=== PATIENT | male | born 1980 | race Caucasian/White ===

== ENCOUNTER 2019-12-20 17:53 | Emergency (ER) | payer OTHER ==
[~2019-12-20] VITALS: Ht 165.1 cm; Wt 124.0 kg
--- NOTE | 2019-12-20 18:53 | PHYS DOC ---
Past Medical History Past Medical History: No Pertinent History Smoking Status: Never Smoker Alcohol Use: Rarely General Adult EDM: Chief Complaint: FLANK PAIN HPI: HPI: 39-year-old female presents with left-sided abdominal pain that has been there for the last 2 to 3 months. Patient's pain is worse with eating. Patient has nausea vomiting with eating. Patient has had some loose stools. Patient denies any fever, cough, shortness of breath. Patient saw his GI doctor who did an MRI of the belly 2 days ago. Patient does not have the results. Review of Systems: Review of Systems: Constitutional: Denies fever or chills. [] Eyes: Denies change in visual acuity. [] HENT: Denies nasal congestion or sore throat. [] Respiratory: Denies cough or shortness of breath. [] Cardiovascular: Denies chest pain or edema. [] GI: + abdominal pain, nausea, vomiting, : Denies dysuria. [] Musculoskeletal: mild back pain Integument: Denies rash. [] Neurologic: Denies headache, focal weakness or sensory changes. [] Endocrine: Denies polyuria or polydipsia. [] Lymphatic: Denies swollen glands. [] Psychiatric: Denies depression or anxiety. [] Heart Score: Risk Factors: Risk Factors: DM, Current or recent (<one month) smoker, HTN, HLP, family history of CAD, obesity. Risk Scores: Score 0 - 3: 2.5% MACE over next 6 weeks - Discharge Home Score 4 - 6: 20.3% MACE over next 6 weeks - Admit for Clinical Observation Score 7 - 10: 72.7% MACE over next 6 weeks - Early Invasive Strategies Physical Exam: PE: Constitutional: Well developed, well nourished, no acute distress, non-toxic appearance. HENT: No trismus Eyes: Conjunctiva clear, EOMI Neck: Normal range of motion, no tenderness, supple, no stridor. [] Cardiovascular: Regular rate/rhythm, peripheral pulse intact, [employer] intact Lungs & Thorax: No respiratory distress Abdomen: Abdomen soft with some mild left lower quadrant tenderness no guarding or rebound no pulsatile masses Skin: Diffuse: Intact, no rash Back: Full ROM Extremities: Normal inspection, no edema Neurologic: Alert and oriented X 3, normal motor function, , no focal deficits noted. Psychologic: Affect normal, judgement normal, mood normal. Current Patient Data: Labs: Laboratory Tests Test 12/20/19 18:40 12/20/19 19:21 Urine Collection Type Void Urine Color Kanika Urine Clarity Clear Urine pH 6.0 Urine Specific [place] 1.025 Urine Protein 30 mg/dL Urine Glucose (UA) Negative mg/dL Urine Ketones (Stick) Trace mg/dL Urine Blood Negative Urine Nitrite Negative Urine Bilirubin Small Urine Urobilinogen Dipstick 1.0 mg/dL Urine Leukocyte Esterase Trace Urine RBC 1-2 /HPF Urine WBC 5-10 /HPF Urine Squamous Epithelial Cells Few /LPF Urine Bacteria Few /HPF Urine Hyaline Casts Occasional /HPF Urine Mucus Marked /LPF White Blood Count 4.0 x10^3/uL Red Blood Count 4.66 x10^6/uL Hemoglobin 15.5 g/dL Hematocrit 44.7 % Mean Corpuscular Volume 96 fL Mean Corpuscular Hemoglobin 33 pg Mean Corpuscular Hemoglobin Concent 35 g/dL Red Cell Distribution Width 13.2 % Platelet Count 223 x10^3/uL Neutrophils (%) (Auto) 59 % Lymphocytes (%) (Auto) 24 % Monocytes (%) (Auto) 16 % Eosinophils (%) (Auto) 1 % Basophils (%) (Auto) 1 % Neutrophils # (Auto) 2.4 x10^3/uL Lymphocytes # (Auto) 1.0 x10^3/uL Monocytes # (Auto) 0.6 x10^3/uL Eosinophils # (Auto) 0.0 x10^3/uL Basophils # (Auto) 0.0 x10^3/uL Sodium Level 137 mmol/L Potassium Level 3.4 mmol/L Chloride Level 100 mmol/L Carbon Dioxide Level 31 mmol/L Anion Gap 6 Blood Urea Nitrogen 5 mg/dL Creatinine 1.3 mg/dL Estimated GFR (Cockcroft-Gault) 61.8 BUN/Creatinine Ratio 4 Glucose Level 94 mg/dL Calcium Level 8.8 mg/dL Total Bilirubin 0.9 mg/dL Aspartate Amino Transf (AST/SGOT) 45 U/L Alanine Aminotransferase (ALT/SGPT) 54 U/L Alkaline Phosphatase 101 U/L Total Protein 7.7 g/dL Albumin 4.1 g/dL Albumin/Globulin Ratio 1.1 Lipase 60 U/L Current Medications Medications (Trade) Dose Ordered Sig/Shahid Route PRN Reason Start Time Stop Time Status Last Admin Dose Admin Sodium Chloride 1,000 ml @ 100 mls/hr Q10H IV 12/20/19 19:06 12/20/19 22:43 DC 12/20/19 19:29 Ondansetron HCl (Zofran) 4 mg 1X ONCE IVP 12/20/19 19:45 12/20/19 19:46 DC 12/20/19 19:29 Ketorolac Tromethamine (Toradol 15mg Vial) 15 mg 1X ONCE IVP 12/20/19 19:45 12/20/19 19:46 DC 12/20/19 19:29 EKG: EKG: [] Radiology/Procedures: Radiology/Procedures: [] Course & Med Decision Making: Course & Med Decision Making Pertinent Labs and Imaging studies reviewed. (See chart for details) [] On reassessment patient is in no distress. Work-up is negative. Patient to follow-up with GI for further evaluation. Dragon Disclaimer: Dragon Disclaimer: This electronic medical record was generated, in whole or in part, using a voice recognition dictation system. Departure Departure Impression: Primary Impression: Left sided abdominal pain Disposition: HOME, SELF-CARE Condition: STABLE Referrals: YOUR GI DOCTOR Patient Instructions: Abdominal Pain Additional Instructions: EMERGENCY DEPARTMENT GENERAL DISCHARGE INSTRUCTIONS THANK YOU for coming to [facility] Emergency Department (ED) today and trusting us with your care. We trust that you had a positive experience in our Emergency Department. If you wish to speak to the department Management you can contact the department administrator at . YOUR FOLLOW UP INSTRUCTIONS ARE FOLLOWS: Do you have a private doctor? If you do not have a private doctor, please ask for a resource list of physicians or clinics that may be able to assist you with follow up care. The Emergency Physician has interpreted your x-rays. The X-ray specialist will also review them. If there is a change in the findings you will be notified in 48 hours when at all possible. A lab test or lab culture may have been done, your results will be reviewed and you will be notified if you need a change in treatment. ADDITIONAL INSTRUCTIONS AND INFORMATION Your care today has been supervised by a physician who is specially trained in emergency care. Many problems require more than one evaluation for a complete diagnosis and treatment. We recommend that you schedule your follow up appointment as recommended to ensure complete treatment of your illness or injury. If you are unable to obtain follow up care and continue to have a problem, or if your condition worsens we recommend that you return to the ED. We are not able to safely determine your condition over the phone nor are we able to give sound medical advice over the phone. For these safety reasons, if you call for medical advice we will ask you to come to the ED for further evaluation If you have any questions regarding these discharge instructions please call the ED at . SAFETY INFORMATION In the interest of safety, wellness, and injury prevention; we encourage you to wear your seatbelt, if you smoke; quit smoking, and we encourage your family to use protective helmet for bicycling and other sporting events that present an increased risk for head injury. IF YOUR SYMPTOMS WORSEN OR NEW SYMPTOMS DEVELOP, OR YOU HAVE CONCERNS ABOUT YOUR CONDITION; OR IF YOUR CONDITION WORSENS WHILE YOU ARE WAITING FOR YOUR FOLLOW UP APPOINTMENT; EITHER CONTACT YOUR PRIMARY CARE DOCTOR, THE PHYSICIAN WHOSE NAME AND NUMBER YOU WERE GIVEN, OR RETURN TO THE ED IMMEDIATELY. Scripts Promethazine Hcl (PROMETHAZINE HCL) 25 Mg Tablet 1 TAB PO PRN Q6HRS PRN for NAUSEA, #20 TAB Prov: CORTEZ MAYORGA MD 12/20/19 Hyoscyamine Sulfate (LEVSIN) 0.125 Mg Tablet 0.125 MG PO Q6HRS PRN for PAIN for 7 Days, #28 TAB Prov: CORTEZ MAYORGA MD 12/20/19 Promethazine Hcl (PROMETHAZINE HCL) 25 Mg Tablet 1 TAB PO PRN Q6HRS PRN for NAUSEA, #20 TAB Prov: CORTEZ MAYORGA MD 12/20/19 Justicifation of Admission Dx: Justifications for Admission: Justification of Admission Dx: N/A CORTEZ MAYORGA MD Dec 20, 2019 18:53
[2019-12-20] MEDS ORDERED: IV NORMAL SALINE 1000ML BAG 1,000 ML IV SCH (19:06)
[2019-12-20 19:21] LABS: BILIRUBIN,URINE SMALL (NEG); CLARITY,URINE CLEAR; COLOR,URINE AMBER; NITRITE,URINE NEGATIVE (NEG); PROTEIN,URINE 30 mg/dL (NEG-TRACE)
[2019-12-20 19:29] LABS: BACTERIA,URINE FEW /HPF (0-FEW); SQUAMOUS EPITHELIAL CELL,UR FEW /LPF
[2019-12-20 19:30] LABS: HYALINE CASTS, URINE OCCASIONAL /HPF
[2019-12-20 19:32] LABS: BASO % 1 % (0-3); EOS % 1 % (0-3); HEMATOCRIT 44.7 % (39.0-53.0); HEMOGLOBIN 15.5 g/dL (13.0-17.5); LYMPH % 24 % (24-48); MEAN CORPUSCULAR HEMOGLOBIN 33 pg (25-35); MEAN CORPUSCULAR HGB CONC 35 g/dL (31-37); MEAN CORPUSCULAR VOLUME 96 fL (79-100); MONO # 0.6 x10^3/uL (0.0-1.1); MONO % 16 % (0-9); NEUT # 2.4 x10^3/uL (1.8-7.7); NEUT % 59 % (31-73); PLATELET COUNT 223 x10^3/uL (140-400); RED BLOOD COUNT 4.66 x10^6/uL (4.30-5.70); RED CELL DISTRIBUTION WIDTH 13.2 % (11.5-14.5)
[2019-12-20 19:38] LABS: CALCIUM 8.8 mg/dL (8.5-10.1); CREATININE 1.3 mg/dL (0.7-1.3); GFR 61.8; POTASSIUM 3.4 mmol/L (3.5-5.1)
[2019-12-20 19:44] LABS: ALBUMIN 4.1 g/dL (3.4-5.0); ALBUMIN/GLOBULIN RATIO 1.1 (1.0-1.7); TOTAL BILIRUBIN 0.9 mg/dL (0.2-1.0); TOTAL PROTEIN 7.7 g/dL (6.4-8.2)
[2019-12-20] MEDS ORDERED: ONDANSETRON PF 4 MG/2 ML VIAL. IVP ONE (19:45)
[2019-12-20] MEDS ORDERED: KETOROLAC 15 MG/ML VIAL. IVP ONE (19:45)
[2019-12-20] MEDS ORDERED: PROM25TA10 PO ×2 (22:10→22:17)
[2019-12-20] MEDS ORDERED: HYOS0.1264 PO (22:10)
[2019-12-20 22:34] VITALS: BP 123/75
== END 2019-12-20 22:42 | disposition home or self-care (01) ==
LOC: ER 17:53
DX: R10.32 Left lower quadrant pain (principal); R11.2 Nausea with vomiting, unspecified; R19.7 Diarrhea, unspecified
CPT/HCPCS: 36415; 80053; 81001; 83690; 85025; 87086; 96361; 96374; 96375; 99285; J1885; J2405; J7030

== ENCOUNTER → 2020-01-08 | Outpatient (CLI) | payer OTHER ==
[2019-12-20 22:34] VITALS: BP 123/75
[~2020-01-08] MED LIST: DEXL60CA2 PO; DOCU-153 PO; HYDR-2761 PO; HYOS0.1264 PO; PROM25TA10 PO
--- NOTE | 2020-01-08 09:54 | PDOC2 ---
INITIAL PAIN CONSULT DATE OF SERVICE: DOS: DATE: 01/08/20 TIME: 09:58 CHIEF COMPLAINT: Chief Complaint: Abdominal pain HISTORY OF PRESENT ILLNESS: This is a 39-year-old male presents history of pain in the abdomen diffusely mostly in the left upper quadrant for the past 5 months. Patient reports no specific injury or accident or incident that he is aware of that might of started the pain is became diffusely gradually in the left upper quadrant worse with eating worse with defecating with motion all activities essentially. Patient reports he had extensive gastrointestinal work-up with his GI doctor including multiple scopes multiple scans all without significant findings or diagnostic findings. Patient describes the pain is constant sharp stabbing shooting in the left upper quadrant comes and goes worse after eating worse before eating patient reports it wakes him sleep once or twice a night occasionally but not most nights does not affect his bowel bladder control does affect his ability to change positions ambulate and walk as well as drive patient has tried Cymbalta hydrocodone as well as amitriptyline none of which have helped significantly decreased pain. Patient is awaiting evaluation with general surgery which is later today as well. Patient rates his disability of 0-10 10 me the worst is a 10 with recreation social activity occupation sexual behavior to his self-care 0 with life support activities with family home responsibilities. PAST MEDICAL HISTORY: PMH: Dizziness nausea vomiting abdominal pain obesity PREVIOUS SURGERIES: Past Surgical Hx: Tonsillectomy 1982 and ear tubes 1986 CURRENT MEDICATIONS: Current Meds: Active Scripts Medications Dose Route/Sig Max Daily Dose Days Date Category Hydrocodone-Apap 5-325 (Hydrocodone Bit/Acetaminophen) 1 Tab Tablet 1 Tab PO PRN Q6HRS PRN 01/08/20 Reported Promethazine Hcl 25 Mg Tablet 1 Tab PO PRN Q6HRS PRN 12/20/19 Rx ALLERGIES; Allergies: Coded Allergies: No Known Drug Allergies (Unverified , 12/20/19) FAMILY HISTORY: Family Hx: Grandfather with colorectal cancer and myocardial infarction in patient's father. SOCIAL HISTORY: Social Hx: Patient does not smoke quit drinking alcohol many years ago no other illegal illicit or recreational drugs drinks 1-2 caffeine drinks per day lives in [facility]. REVIEW OF SYSTEMS: ROS: Review of systems is positive for those items mentioned in his present illness all system reviewed otherwise negative complete full and well-documented on patient's chart. PHYSICAL EXAM: VS: Blood pressure 137/36 pulse 67 respirations 18 temperature 98.4 F height is 5 feet 5 inches weight is 2 8 1 pounds PE: PHYSICAL EXAMINATION: GENERAL: The patient is awake, alert, oriented, appropriate, very pleasant demeanor HEENT: Shows normocephalic, atraumatic. Extraocular movements are intact and symmetrical. Oral cavity: Mucous membranes moist and pink. Dentition is intact. NECK: Shows anterior throat supple without palpable lymphadenopathy noted. Swallow reflex symmetrical. CHEST: Shows normal on inspection. Breath sounds are clear bilaterally. HEART: Shows S1, S2 clear. No murmurs auscultated. ABDOMEN: Soft, diffusely tender worse in the left upper quadrant, but tender right upper quadrant bilateral lower quadrants diffusely as well. Nondistended. No palpable organomegaly is noted. No rebound or guarding demonstrated. BACK: Shows spine grossly in the midline. Normal-appearing cervical lordotic curvature. There is slightly increased thoracic kyphosis, some minor flattening of the lumbar lordotic curvature. Lumbar paraspinous muscles show symmetrical on inspection, on palpation shows some moderate tenderness diffusely throughout the upper, middle and lower distribution of the paraspinous muscles bilaterally but without specific trigger points, without radiation of pain. The patient has good rotational motion of the lumbar spine, both laterally as well as extension and flexion without significant difficulty. No tenderness over the spinous processes, sacrum or sacroiliac regions. EXTREMITIES: Lower extremities show deep tendon reflexes 1+ in the patellar and tendo calcaneus tendons. Motor exam is 5 on a scale of 5 with right dorsiflexion, extension, quadriceps and hamstring flexion and 5/5 on the left. Peripheral pulses are 1+ posterior tibial. No peripheral edema is noted bilaterally. Lower extremities are warm and dry to touch, equal in color and appearance. Straight leg raise noted to be negative bilaterally. Gaenslen's and Ernesto's maneuvers are negative as well. The patient is able to stand from a seated position does report some abdominal pain with this maneuver but walks without significant disturbance in gait. SKIN: Shows warm and dry, good turgor. No edema. No sores, rashes or bruising throughout. IMPRESSION: Impression: This is a 39-year-old male with 5-month history abdominal pain diffusely after extensive gastroenterology work-up and diagnostic studies including upper and lower scopes as well as CT scans. Patient has appointment with general surgery later this morning encouraged him to keep that appointment. Esperanza with the patient we would not be prescribed any long-term narcotics from this office. Patient may follow-up after surgical evaluation, if necessary. BLADIMIR MONTALVO MD Jan 08, 2020 09:54
== END | disposition home or self-care (01) ==
LOC: PNCL 08:53
PROVIDERS: ATTEND Anesthesiology
DX: R10.9 Unspecified abdominal pain (principal); Z80.0 Family history of malignant neoplasm of digestive organs; Z79.899 Other long term (current) drug therapy
CPT/HCPCS: G0463

== ENCOUNTER → 2020-01-31 | Outpatient (CLI) | payer OTHER ==
[~2020-01-31] MED LIST changes: -DEXL60CA2 PO; -DOCU-153 PO
== END ==
LOC: LAB 13:13
PROVIDERS: ATTEND Surgery
DX: Z20.828 Contact with and (suspected) exposure to other viral communicable diseases (principal)
CPT/HCPCS: U0003-CS

== ENCOUNTER 2020-02-04 08:23 | Observation (INO) | payer OTHER ==
[~2020-02-04] VITALS: Ht 165.1 cm; Wt 126.0 kg
[2020-02-04] VITALS (9 sets, daily range): BP systolic 117–141; BP diastolic 66–95
[~2020-02-04 08:23] MED LIST changes: +DEXL60CA2 PO; +HEPARIN 1,000 UNIT in IV NORMAL SALINE 1,000 ML for SURG PERIOP IRR ONE; +HYDROmorphone 2 MG/ML VIAL IV PRN; +IV RINGERS,LACTATED 1000ML 1,000 ML IV SCH; +LIDOCAINE 1% PF 2 ML VIAL. ID PRN; +MORPHINE SULFATE 2 MG/ML VIAL. IV PRN; +ONDANSETRON PF 4 MG/2 ML VIAL. IV PRN; +PROCHLORPERAZINE 10 MG/2 ML VIAL. IV PRN; +cefOXitin SODIUM IV Push 2 GM VIAL. IVP PRN; +fentaNYL PF VIAL 100 MCG/2 ML VIAL IV PRN
[2020-02-04] MEDS ORDERED: SURGICEL HEMOSTAT 2X14 EACH. ONE (08:28)
[2020-02-04] MEDS ORDERED: BISACODYL 10 MG SUPP.RECT. ONE (08:28)
[2020-02-04] MEDS ORDERED: IOHEXOL 300 MG/ML 50 ML VIAL. ONE (08:28)
[2020-02-04] MEDS ORDERED: BUPIVACAINE MPF 0.5% 30 ML VIAL. ONE (08:29)
[2020-02-04] MEDS ORDERED: ROCURONIUM 100 MG/10 ML VIAL. ONE (09:10)
[2020-02-04] MEDS ORDERED: fentaNYL PF VIAL 100 MCG/2 ML VIAL ONE ×3 (09:10→12:01)
[2020-02-04] MEDS ORDERED: KETOROLAC 30 MG/ML VIAL. ONE (09:11)
[2020-02-04] MEDS ORDERED: ONDANSETRON PF 4 MG/2 ML VIAL. ONE (09:11)
[2020-02-04] MEDS ORDERED: DESFLURANE > 120 MINUTES IH ONE (09:11)
[2020-02-04] MEDS ORDERED: DEXAMETHASONE SOD PHOS 4 MG/ML VIAL ONE ×2 (09:11)
[2020-02-04] MEDS ORDERED: LIDOCAINE 2% PF 5 ML VIAL. ONE (09:11)
[2020-02-04] MEDS ORDERED: PROPOFOL 10 MG/ML (20ML) VIAL. IV ONE ×2 (09:11→09:54)
[2020-02-04] MEDS ORDERED: FAMOTIDINE 20 MG/2 ML VIAL ONE (09:11)
[2020-02-04] MEDS ORDERED: MIDAZOLAM HCL/PF 2 MG/2 ML VIAL. ONE (09:14)
--- NOTE | 2020-02-04 09:39 | PDOC ---
SURGICAL PROGRESS NOTE DATE: 02/04/20 TIME: 09:34 Subjective Pre-Op Note 39 yo M with longstanding history of LUQ pain. Seen in preop accompanied by supportive family. 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 Will not address duodenal diverticulum given involvement by ampulla of vater. R/R/B/A d/w pt and pt's supportive family. Risks, including, but not limited to: bleeding, infection, damage to surrounding structures, risk of anesthesia, risk of open, risk of bowel leak. They are specifically informed that pt is morbidly obese and is high risk for periopertive complications. This ultimately may not address his symptoms. They appear to understand, their questions are answered and they elect to proceed. Office note H&P reviewed and unchanged. Vital Signs Vital Signs Date Time Temp Pulse Resp B/P (MAP) Pulse Ox O2 Delivery O2 Flow Rate FiO2 02/04/20 08:45 97.8 78 18 97 97.8 02/04/20 08:32 137/80 Room Air Justicifation of Admission Dx: Justifications for Admission: Justification of Admission Dx: N/A ALEKSANDRA VALDES MD Feb 04, 2020 09:39
[2020-02-04] MEDS ORDERED: cefOXitin SODIUM IV Push 1 GM VIAL. IVP ONE (10:11)
[2020-02-04] MEDS ORDERED: SUGAMMADEX SODIUM 200 MG/2 ML VIAL. IVP ONE (11:00)
[2020-02-04] MEDS: IV NORMAL SALINE 1000ML BAG 1,000 ML IV SCH (11:26)
[2020-02-04] MEDS ORDERED: 0.9 % SODIUM CHLORIDE 10 ML DISP.SYRIN. IV PRN (11:30)
[2020-02-04] MEDS ORDERED: NALOXONE 0.4 MG/ML VIAL. IV PRN (11:30)
[2020-02-04] MEDS ORDERED: DEXTROSE 50% 25 GM / 50ML DISP.SYRIN. IV PRN (11:30)
[2020-02-04] MEDS ORDERED: KETOROLAC 15 MG/ML VIAL. IV PRN (11:30)
--- NOTE | 2020-02-04 11:32 | RAD ---
Intraoperative cholangiogram fluoroscopy 02/04/2020 10:38 AM INDICATION: Cholangiogram in the OR COMPARISON: None available TECHNIQUE: 4 fluoroscopic spot views are provided. Fluoroscopy time: 0.31 minutes FINDINGS: Fluoroscopy is provided for intraoperative use. There is contrast opacification of the intrahepatic and extra hepatic biliary tree. Cystic duct, common bile duct and pancreatic duct are opacified. Contrast opacifies the duodenum. No filling defects are visualized. There may be retrograde filling of the stomach. IMPRESSION: 1. Intraoperative cholangiogram performed utilizing fluoroscopy. 2. Please refer to the separate operative report for further details. Electronically signed by: Kaylen Andrade MD (02/04/2020 11:29 AM) [id number]
--- NOTE | 2020-02-04 11:47 | PDOC4 ---
OPERATIVE NOTE Date: Date: Feb 04, 2020 Pre-Op Diagnosis: Abdominal pain Post-Op Diagnosis: same, chronic cholecystitis Procedure Performed: laparoscopic exploration, excision of small bowel mesentery mass, appendectomy, cholecystectomy with cholangiogram. (Consideration of pyloroplasty was done, but not performed secondary pain probably biliary in nature, soft call of stricture on imaging and no obvious abnormality noted at time of surgery). Surgeon: Edis Valdes Anesthesia Type: GETA plus local Blood Loss: 100 Specimans Obtained: gallbladder, appendix, 1 cm small bowel mesentery mass Findings: no obvious duodenal mass or abnormality, morbid obesity with extensive intraabdominal adipose tissue, normal appendix, extensive chronic adhesions of gallbladder, essentially normal cholangiogram Complications: none Operative Note: After obtaining informed consent, patient was taken to OR, induced under GETA and prepped in the usual fashion. 5 mm ports placed supraumbilical, RUQ, RLQ, and 12 port placed epigastric, all under laparoscopic guidance. Abdominal cavity was explored and noted as above. Extensive adipose tissue. Stomach normal. Duodenum soft and without obvious abnormality. Small bowel run from ligament of treitz to terminal ileum. Small port of adhesion in distal small bowel related to 1 cm small bowel mesentery nodule. This was excised and sent to pathology. Otherwise small bowel normal throughout. Colon normal throughout. No obvious peritoneal pathology. Liver was normal in appearance. Gallbladder noted to be extensively adhesed. Adhesions taken down sharply. Gallbladder taken down with cautery in dome down fashion. Cystic artery ligated with clips. Cholangiogram obtained via cystic duct and was essentially normal. Duodenal diverticulum noted. Cystic duct ligated with clips and hemolok. Gallbladder placed in bag, delivered and sent to pathology. Copious irrigation. No evidence of bleeding or other pathology at time of closure. Attention turned to appendix. It was grossly normal. Defect created in mesoappendix. General load GEORGES taken across base of appendix. Vascular load used to divide mesoappendix. Appendix placed in bag, delivered and sent to pathology for evaluation. Copious irrigation. No evidence of bleeding or other pathology at time of closure. Ports removed without bleeding. Fascia repaired with 0 vicryl. Skin repaired with 4 0 monocryl. Dressing placed. Patient tolerated procedure well and sent to PACU in stable condition. All counts correct. Wound class is 2. A pyloroplasty was consider, given history of pyloric stenosis, duodenal stricture by imaging and EGD, and unknown source of pain and symptoms. However, given suspected source of pain being biliary in nature and grossly normal du odenum at time of surgery, pyloroplasty was not done. Pyloroplasty would significantly increase morbidity of procedure and low suspicion that this is source of symptoms. However, will certainly consider pyloroplasty if patient continues to have symptoms. ALEKSANDRA VALDES MD Feb 04, 2020 11:46
[2020-02-04] MEDS: fentaNYL PF VIAL 100 MCG/2 ML VIAL IV PRN ×2 (12:28→13:46)
[2020-02-04] MEDS ORDERED: PROCHLORPERAZINE 10 MG/2 ML VIAL. ONE (12:28)
[2020-02-04] MEDS: IV RINGERS,LACTATED 1000ML 1,000 ML IV SCH ×2 (13:15→21:03)
[2020-02-04] MEDS: MORPHINE SULFATE 2 MG/ML VIAL. IV PRN ×3 (18:37→21:34)
[2020-02-04] MEDS: DOCUSATE SODIUM 100 MG CAPSULE. PO SCH (21:02)
[2020-02-05] MEDS: MORPHINE SULFATE 2 MG/ML VIAL. IV PRN ×2 (00:04→09:25)
[2020-02-05] MEDS: HYDROcodone/APAP 5/325MG 1 TAB TABLET PO PRN ×4 (00:05→19:41)
[2020-02-05] MEDS: ONDANSETRON PF 4 MG/2 ML VIAL. IVP PRN ×3 (00:42→21:53)
[2020-02-05 03:00] VITALS: BP 110/61
[2020-02-05 07:00] VITALS: BP 116/75
[2020-02-05] MEDS: IV NORMAL SALINE 1000ML BAG 1,000 ML IV SCH (07:35)
[2020-02-05] MEDS: DOCUSATE SODIUM 100 MG CAPSULE. PO SCH ×2 (08:09→21:00)
[2020-02-05] MEDS: IV RINGERS,LACTATED 1000ML 1,000 ML IV SCH ×2 (08:11→18:00)
--- NOTE | 2020-02-05 09:40 | NUR ---
SW following. Discussed with RN, pt from home, room air, full liquid diet. Pt had surgery 02/04/2020. Anticipate one more day before discharge. SW will continue to follow.
--- NOTE | 2020-02-05 10:06 | PDOC ---
SURGICAL PROGRESS NOTE DATE: 02/05/20 TIME: 10:04 Subjective pretty sore today, upper abdomen, shoulders no nausea Vital Signs Vital Signs Date Time Temp Pulse Resp B/P (MAP) Pulse Ox O2 Delivery O2 Flow Rate FiO2 02/05/20 09:25 Room Air 02/05/20 07:00 98.3 74 18 116/75 (89) 95 98.3 02/04/20 13:56 2 I&O Intake and Output 02/05/20 07:00 Intake Total 2000 ml Output Total 150 ml Balance 1850 ml IV Total 2000 ml Output Urine Total 50 ml Estimated Blood Loss 100 ml # Voids 3 General: Alert, Oriented X3, Cooperative Abdomen: Soft, Other (dressings dry) Problem List increase activity pain control ADAT Justicifation of Admission Dx: Justifications for Admission: Justification of Admission Dx: N/A NUBIA ACHARYA APRN Feb 05, 2020 10:06
[2020-02-05 11:00] VITALS: BP 122/78
[2020-02-05 15:00] VITALS: BP 116/71
[2020-02-05 19:00] VITALS: BP 96/60
[2020-02-05 23:00] VITALS: BP 109/61
[2020-02-06 03:00] VITALS: BP 95/53
[2020-02-06] MEDS: IV RINGERS,LACTATED 1000ML 1,000 ML IV SCH (04:19)
[2020-02-06] MEDS: HYDROcodone/APAP 5/325MG 1 TAB TABLET PO PRN ×2 (04:24→08:49)
[2020-02-06 07:00] VITALS: BP 107/41
[2020-02-06] MEDS: DOCUSATE SODIUM 100 MG CAPSULE. PO SCH (08:49)
--- NOTE | 2020-02-06 09:27 | NUR ---
SW following. Discussed with RN, pt from home, room air, GI soft diet. Pt had surgery 02/03 - doing well. RN advised no SW needs, anticipate possible discharge home today. SW will continue to follow, should any discharge needs arise.
[2020-02-06] MEDS: ONDANSETRON PF 4 MG/2 ML VIAL. IVP PRN (09:43)
--- NOTE | 2020-02-06 10:08 | PDOC ---
SURGICAL PROGRESS NOTE DATE: 02/06/20 TIME: 10:07 Subjective pain about the same mild nausea, did eat breakfast some flatus Vital Signs Vital Signs Date Time Temp Pulse Resp B/P (MAP) Pulse Ox O2 Delivery O2 Flow Rate FiO2 02/06/20 09:46 Room Air 02/06/20 07:00 97.7 78 16 107/41 (63) 94 97.7 I&O Intake and Output 02/06/20 07:00 Intake Total 3640 ml Balance 3640 ml Intake Oral 1240 ml IV Total 1200 ml Other 1200 ml # Voids 3 General: Alert, Oriented X3, Cooperative Abdomen: Soft, Other (lap sites c/d/i) Assessment/Plan possible home after lunch if no n/v Justicifation of Admission Dx: Justifications for Admission: Justification of Admission Dx: N/A NUBIA ACHARYA APRN Feb 06, 2020 10:08
[2020-02-06] MEDS ORDERED: DOCU-153 PO (10:10)
[2020-02-06] MEDS ORDERED: HYDR-2761 PO (10:10)
--- NOTE | 2020-02-06 10:12 | DISCH ---
DISCHARGE INSTRUCTIONS Condition on Discharge Condition on Discharge: Stable Activity After Discharge Activity Instructions for Disc: Activity as tolerated Lifting Instructions after Dis: No heavy lifting (20 lbsx x 2 weeks ) Driving Instructions after Dis: Do not drive Diet after Discharge Diet after Discharge: Regular Wound Incision Care Wound/Incision Care: May get incision wet, No wound care needed Contacting the after DC Call your doctor for: Concerns you may have Follow-Up Follow up with: Dr Tsang 2 weeks, call to schedule [phone] NUBIA ACHARYA APRN Feb 06, 2020 10:12
[2020-02-06 11:00] VITALS: BP 129/39
[2020-02-06 15:00] VITALS: BP 124/68
--- NOTE | 2020-02-06 16:08 | NUR ---
Discharge instructions given. Prescription sent via electronic to [facility] pharmacy at [facility]. Answered questions and concerns. Verbalized understanding. Pt discharged home accompanied by cousin. Escorted out by w/c.
--- NOTE | 2020-02-07 12:06 | PATHOLOGY ---
[facility] Accession Number: [id number] . 01 Material submitted: . PART A: gallbladder - GALLBLADDER AND CONTENTS PART B: appendix - APPENDIX AND CONTENTS PART C: small bowel - SMALL BOWEL MASS . 01 Clinical history: . ABDOMINAL PAIN . 02 Diagnosis: A. Gallbladder, excision: - Mild chronic cholecystitis; negative for malignancy. - Cholesterolosis. . B. Vermiform appendix, excision: - Fecalith. - Negative for malignancy. . C. Soft tissue "small bowel mass", excision: - Nodular segment of fibroadipose tissue with fat necrosis and dystrophic calcification; negative for malignancy. . (MIKIE:catarino; 02/06/2020) [facility] 02/07/2020 1118 Local . 02 Electronically signed: . Kyle Hughes MD, Pathologist NPI- [id number] . 01 Gross description: . A. The specimen is received in formalin labeled "Omid, Adan, gallbladder and contents" and consists of an intact green gallbladder measuring 8.3 x 4.0 x 3.0 cm. The margin is inked black. Opening reveals a lumen filled with viscous green bile and no calculi. The mucosa is green with extensive yellow stippling with an average wall thickness of 0.1 cm. No masses are identified. [employer] Specialist sections are submitted in A1. . B. The specimen is received in formalin, labeled "Omid, Adan, appendix" and consists of an appendix measuring 6.0 cm in length and up to 0.8 cm in diameter with mesoappendix measuring 2.2 cm thick. The serosa is pink-harrison smooth shiny. The margin is closed with a line of andrés and inked black. Sectioning reveals a patent to dilated lumen. Marketing Proposal Specialist sections are submitted in B1. . C. The specimen is received in formalin, labeled "Omid, Adan, small bowel mass" and consists of a nodular segment of orange harrison tissue with attached yellow adipose tissue measuring 0.9 x 0.8 x 0.5 cm. Sectioning reveals fat necrosis and the specimen is entirely submitted in C1. (SDY; 02/05/2020) SYU/SYU 02/05/2020 1110 Local . 02 Pathologist provided ICD-10: K80.10, R10.9 . 02 CPT . 116658, 217347, [id number] Specimen Comment: A courtesy copy of this report has been sent to [phone], [phone] Specimen Comment: [id number] Specimen Comment: Report sent to / DR RAYMUNDO Performed at: [address] [facility] [address], [place] [id number] MD Adalberto Wray MD Phone: [phone] Performed at: 02 [facility] [address], [place] [id number] MD Andrews Jordan MD Phone: [phone]
--- NOTE | 2020-02-11 11:20 | PDOC3 ---
Discharge Summary Visit Information Date of Admission: Feb 04, 2020 Date of Discharge: Feb 06, 2020 Admitting Diagnosis: abdominal pain Final Diagnosis chronic cholecystitis, abdominal pain Brief Hospital Course Allergies Allergies Coded Allergies Type Severity Reaction Last Updated Verified duloxetine Allergy Intermediate 02/05/20 Yes Brief Hospital Course Mr. Anne is a 39 old male who underwent laparoscopic exploration, excision of small bowel mesentery mass, appendectomy, cholecystectomy with cholangiogram. Postoperatively pain managed, tolerating diet, ambulating, and urinating. Ready for discharge home Discharge Information Condition at Discharge: Stable Follow Up: Weeks (2) Disposition/Orders: D/C to Home Scheduled Dexlansoprazole (Dexilant) 60 Mg Cap., 1 CAP PO DAILY for gerd for 30 Days, #30 Ref 0 (Reported) Entered as Reported by: MARIA LUZ JOHNSON on 02/03/2057 Last Taken: Unknown Dose on 02/03/20 Last Action: Last Taken Edited on 02/04/20840 by NAT ALMANZA Docusate Sodium (Dok) 100 Mg Capsule, 100 MG PO BID for constipation , #60 Ref 0 Prescribed by: Nubia Murphy on 02/06/20 1010 Scheduled PRN Hydrocodone Bit/Acetaminophen (Hydrocodone-Apap 5-325 ) 1 Tab Tablet, 1 TAB PO PRN Q4HRS PRN for MILD PAIN 1-3, #30 Ref 0 Prescribed by: Nubia Murphy on 02/06/20 1010 Promethazine Hcl (Promethazine Hcl) 25 Mg Tablet, 1 TAB PO PRN Q6HRS PRN for NAUSEA, #20 Prescribed by: CORTEZ MAYORGA MD on 12/20/192216 Last Taken: Unknown Dose on 02/04/2045 Last Action: Last Taken Edited on 02/04/20840 by NAT ALMANZA Discontinued Medications Hydrocodone Bit/Acetaminophen (Hydrocodone-Apap 5-325 ) 1 Tab Tablet, 1 TAB PO PRN Q6HRS PRN for PAIN, Ref 0 (Reported) Entered as Reported by: GUICHO CHAPPELL on 01/08/20927 Last Taken: Unknown Dose on 02/04/20 0745 Last Action: Last Taken Edited on 02/04/20840 by NAT ALMANZA Justicifation of Admission Dx: Justifications for Admission: Justification of Admission Dx: N/A NUBIA MURPHY OUTSOLE FLEXER Feb 11, 2020 11:20
== END 2020-02-06 16:08 | disposition home or self-care (01) ==
LOC: SURG 08:23 → 4 NORTH 13:24 → INTOOBSV 13:24
PROVIDERS: ADMIT Surgery; ATTEND Surgery
DX: K81.1 Chronic cholecystitis (principal); K57.10 Diverticulosis of small intestine without perforation or abscess without bleeding; E66.01 Morbid (severe) obesity due to excess calories
CPT/HCPCS: 44970; 47563; 74300; 88304; 88307; 96361; 96374; 96375; 96376; A7015; G0378; G0379; J0694; J0780; J1100; J1644; J1885; J2250; J2270; J2405; J2704; J3010; J3490; J7030; J7120; Q9967